=== PATIENT | female | born 1960 | race Caucasian/White ===

== ENCOUNTER 2019-03-27 09:23 | Emergency (ER) | payer BC, OTHER ==
[2019-03-27] MEDS ORDERED: Sodium Chloride 0.9% 1,000 ML IV ONE (09:30)
--- NOTE | 2019-03-27 09:35 | EDM.PDOC ---
ED HPI GENERAL MEDICAL PROBLEM - General Chief Complaint: Abdominal Pain Stated Complaint: ABDOMEN PAIN Time Seen by Provider: 03/27/19 09:27 - History of Present Illness INITIAL COMMENTS - FREE TEXT/NARRATIVE: HISTORY AND PHYSICAL: History of present illness: Patient is a 58-year-old white female who presents with concern of left-sided abdominal pain is been worse over the last 24-48 hours she is concerned because they will be taking a trip to [place] in the near future. There is no vomiting diarrhea urinary symptoms patient denies fever chills denies trauma patient denies vomiting or diarrhea Review of systems: As per history of present illness and below otherwise all systems reviewed and negative. Past medical history: As per history of present illness and as reviewed below otherwise noncontributory. Surgical history: As per history of present illness and as reviewed below otherwise noncontributory. Social history: No reported history of drug or alcohol abuse. Family history: As per history of present illness and as reviewed below otherwise noncontributory. Physical exam: HEENT: Atraumatic, normocephalic, pupils reactive, negative for conjunctival pallor or scleral icterus, mucous membranes moist, throat clear, neck supple, nontender, trachea midline. Lungs: Clear to auscultation, breath sounds equal bilaterally, chest nontender. Heart: S1S2, regular, negative for clicks, rubs, or JVD. Abdomen: Soft, nondistended, mild left lower quadrant tenderness this is not well localized no rebound no guarding. Negative for masses or hepatosplenomegaly. Negative for costovertebral tenderness. Pelvis: Stable nontender. Genitourinary: Deferred. Rectal: Deferred. Extremities: Atraumatic, negative for cords or calf pain. Neurovascular unremarkable. Neuro: Awake, alert, oriented. Cranial nerves II through XII unremarkable. Cerebellum unremarkable. Motor and sensory unremarkable throughout. Exam nonfocal. Diagnostics: CBC CMP and lipase UA CT abdomen and pelvis Therapeutics: saline 1 L bolus Impression: #1 left-sided abdominal pain Definitive disposition and diagnosis as appropriate pending reevaluation and review of above. 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 ED EXAM, GENERAL - Physical Exam Exam: See Below (Dictation) Course - Vital Signs Last Recorded V/S: Last Vital Signs Temp 35.5 C 03/27/19 09:30 Pulse 79 03/27/19 09:30 Resp 16 03/27/19 09:30 BP 137/92 H 03/27/19 09:30 Pulse Ox 97 03/27/19 09:30 - Orders/Labs/Meds Labs: Laboratory Tests 03/27/19 03/27/19 03/27/19 Range/Units 09:45 09:45 09:45 WBC 6.25 (4.0-11.0) K/uL RBC 4.55 (4.30-5.90) M/uL Hgb 13.8 (12.0-16.0) g/dL Hct 41.5 (36.0-46.0) % MCV 91.2 (80.0-98.0) fL MCH 30.3 (27.0-32.0) pg MCHC 33.3 (31.0-37.0) g/dL RDW Std Deviation 43.8 (28.0-62.0) fl RDW Coeff of Brianna 13 (11.0-15.0) % Plt Count 204 (150-400) K/uL MPV 10.10 (7.40-12.00) fL Neut % (Auto) 72.0 (48.0-80.0) % Lymph % (Auto) 20.6 (16.0-40.0) % [place] % (Auto) 5.6 (0.0-15.0) % Eos % (Auto) 1.0 (0.0-7.0) % Baso % (Auto) 0.8 (0.0-1.5) % Neut # (Auto) 4.5 (1.4-5.7) K/uL Lymph # (Auto) 1.3 (0.6-2.4) K/uL [place] # (Auto) 0.4 (0.0-0.8) K/uL Eos # (Auto) 0.1 (0.0-0.7) K/uL Baso # (Auto) 0.1 (0.0-0.1) K/uL Nucleated RBC % 0.0 /100WBC Nucleated RBCs # 0 K/uL Sodium 141 (136-145) mmol/L Potassium 4.0 (3.5-5.1) mmol/L Chloride 103 (98-107) mmol/L Carbon Dioxide 28.3 (21.0-32.0) mmol/L BUN 24 H (7.0-18.0) mg/dL Creatinine 1.2 H (0.6-1.0) mg/dL Est Cr Clr Drug Dosing 40.91 mL/min Estimated GFR (MDRD) 46.3 ml/min Glucose 99 (74-106) mg/dL Calcium 9.3 (8.5-10.1) mg/dL Total Bilirubin 0.4 (0.2-1.0) mg/dL AST 23 (15-37) IU/L ALT 19 (14-63) IU/L Alkaline Phosphatase 62 (46-116) U/L Total Protein 7.7 (6.4-8.2) g/dL Albumin 4.2 (3.4-5.0) g/dL Globulin 3.5 (2.6-4.0) g/dL Albumin/Globulin Ratio 1.2 (0.9-1.6) Lipase 135 (73-393) U/L Urine Color YELLOW Urine Appearance CLEAR Urine pH 5.5 (5.0-8.0) Ur Specific Friona <= 1.005 (1.001-1.035) Urine Protein NEGATIVE (NEGATIVE) mg/dL Urine Glucose (UA) NEGATIVE (NEGATIVE) mg/dL Urine Ketones NEGATIVE (NEGATIVE) mg/dL Urine Occult Blood NEGATIVE (NEGATIVE) Urine Nitrite NEGATIVE (NEGATIVE) Urine Bilirubin NEGATIVE (NEGATIVE) Urine Urobilinogen 0.2 (<2.0) EU/dL Ur Leukocyte Esterase NEGATIVE (NEGATIVE) Meds: Medications Discontinued Medications Generic Name Dose Route Start Last Admin Trade Name Tova PRN Reason Stop Dose Admin Sodium Chloride 1,000 mls @ 999 mls/hr 03/27/19 09:30 03/27/19 09:52 Normal Saline IV 03/27/19 10:30 999 mls/hr STAT ONE Administration Departure - Departure Time of Disposition: 11:23 Disposition: Home, Self-Care 01 Condition: Good Clinical Impression: Abdominal pain - Discharge Information Referrals: Tung Barrera MD [Primary Care Provider] - Forms: ED Department Discharge Additional Instructions: The following information is given to patients seen in the emergency department who are being discharged to home. This information is to outline your options for follow-up care. We provide all patients seen in our emergency department with a follow-up referral. The need for follow-up, as well as the timing and circumstances, are variable depending upon the specifics of your emergency department visit. If you don't have a primary care physician on staff, we will provide you with a referral. We always advise you to contact your personal physician following an emergency department visit to inform them of the circumstance of the visit and for follow-up with them and/or the need for any referrals to a consulting specialist. The emergency department will also refer you to a specialist when appropriate. This referral assures that you have the opportunity for followup care with a specialist. All of these measure are taken in an effort to provide you with optimal care, which includes your followup. Under all circumstances we always encourage you to contact your private physician who remains a resource for coordinating your care. When calling for followup care, please make the office aware that this follow-up is from your recent emergency room visit. If for any reason you are refused follow-up, please contact the [facility] emergency department at and asked to speak to the emergency department charge nurse. [facility]CKAY[facility] Specialty Care - General Surgery Professional Building [address] [place] [address], [address] [place] [address] Follow-up primary medical doctor as needed as discussed follow-up Gen. surgery is needed as discussed return as needed as discussed
[2019-03-27 10:34] LABS: CARBON DIOXIDE,CO2 28.3 mmol/L (21.0-32.0)
--- NOTE | 2019-03-27 10:44 | CT ---
INDICATION: Pt w/LLQ pain x 2 days. INDICATION: Left lower quadrant abdominal pain for 2 days. TECHNIQUE: CT abdomen and pelvis without contrast. COMPARISON: None FINDINGS: Lower chest: 5-6 millimeter pulmonary nodule in the left lung base, image 19, series 201. Liver: Unremarkable. Spleen: Unremarkable. Pancreas: Unremarkable. Gallbladder and bile ducts: Unremarkable. Kidneys: Unremarkable. No kidney or ureteral stones and no hydronephrosis. Adrenal glands: Unremarkable. GI tract: Minimal colonic diverticulosis, but no findings on CT for diverticulitis. Appendix is seen best on coronal reconstruction images, image 42, series 203. Vascular structures: Unremarkable. Lymph nodes: Unremarkable. Miscellaneous: Unremarkable. No free air or significant free fluid. Pelvic Organs: Unremarkable. Bones: Cystic lesion at the junction of the left femoral head and neck, image 125, series 201. This has a nonaggressive appearance, measuring 10 mm. IMPRESSION: 1. No findings are seen to explain left lower quadrant abdominal pain. 2. Colonic diverticulosis, but no findings on CT for diverticulitis. 3. Normal caliber appendix. 4. No obstructive urolith, hydronephrosis, or perinephric edema. Dictated by Herbert Giraldo MD @ 03/27/2019 10:43:41 AM Please note that all CT scans at this facility use dose modulation, iterative reconstruction, and/or weight-based dosing when appropriate to reduce radiation dose to as low as reasonably achievable. Dictated by: Herbert Giraldo MD @ 03/27/2019 10:43:46 (Electronically Signed)
[2019-03-27 12:05] VITALS: BP 97/62; PULSE 63
== END 2019-03-27 11:40 | disposition home or self-care (01) ==
LOC: MW.ED 09:23
DX: R10.32 Left lower quadrant pain (principal); Z88.5 Allergy status to narcotic agent
CPT/HCPCS: 36415; 74176; 80053; 81003; 83690; 85025; 96360; 99284; J7040

== ENCOUNTER 2021-05-30 07:51 | Day surgery (SDC) | payer BC, OTHER ==
[~2021-05-30 07:51] MED LIST: propofoL 50 ML ONE
[2021-05-30] MEDS ORDERED: Lactated Ringers 1,000 ML IV SCH ×2 (08:00→10:30)
--- NOTE | 2021-05-30 08:57 | PCM.PREANE ---
Preanesthetic Assessment - Anesthesia/Transfusion/Family Hx Anesthesia History: Prior Anesthesia Without Reaction Other Type of Anesthesia Reaction Comment: states gets nauseated post anesthesia Transfusion History: No Prior Transfusion(s) - Review of Systems General: No Symptoms Pulmonary: No Symptoms Cardiovascular: No Symptoms Gastrointestinal: No Symptoms Neurological: No Symptoms Other: Reports: None - Physical Assessment NPO Status Date: 05/30/21 NPO Status Time: 00:00 Vital Signs: Last Vital Signs Temp 97.3 F 05/30/21 08:04 Pulse 72 05/30/21 08:04 Resp 14 05/30/21 08:04 BP 110/61 05/30/21 08:04 Pulse Ox 98 05/30/21 08:04 Height: 5 ft 2 in Weight: 135 lb ASA Class: 2 Mental Status: Alert & Oriented x3 Airway Class: Mallampati = 2 Dentition: Reports: Normal Dentition Thyro-Mental Finger Breadths: 3 Mouth Opening Finger Breadths: 3 ROM/Head Extension: Full Lungs: Clear to Auscultation, Normal Respiratory Effort Cardiovascular: Regular Rate, Regular Rhythm - Allergies Allergies/Adverse Reactions: Allergies Allergy/AdvReac Type Severity Reaction Status Date / Time codeine Allergy Stomach Verified 05/24/21 10:11 Upset - Acknowledgements Anesthesia Type Planned: General Anesthesia Pt an Appropriate Candidate for the Planned Anesthesia: Yes Alternatives and Risks of Anesthesia Discussed w Pt/Guardian: Yes Pt/Guardian Understands and Agrees with Anesthesia Plan: Yes PreAnesthesia Questionnaire - Past Health History Medical/Surgical History: Denies Medical/Surgical History HEENT History: Reports: None Cardiovascular History: Reports: None Respiratory History: Reports: Asthma Other Respiratory History: asthma as a child Gastrointestinal History: Reports: Colon Polyp Genitourinary History: Reports: None 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: , Spontaneous Musculoskeletal History: Reports: None Neurological History: Reports: Migraines Psychiatric History: Reports: None Endocrine/Metabolic History: Reports: None Hematologic History: Reports: None Immunologic History: Reports: None Oncologic (Cancer) History: Reports: None Dermatologic History: Reports: None - Past Surgical History Head Surgeries/Procedures: Reports: None HEENT Surgical History: Reports: None Cardiovascular Surgical History: Reports: None Respiratory Surgical History: Reports: None GI Surgical History: Reports: Colonoscopy Female Surgical History: Reports: Breast Biopsy, D&C, Tubal Ligation Other Female Surgeries/Procedures: hx of ovarian cystectomy, tubal ligation, D&C x2 Endocrine Surgical History: Reports: None Neurological Surgical History: Reports: None Musculoskeletal Surgical History: Reports: None Oncologic Surgical History: Reports: Biopsy of Breast Dermatological Surgical History: Reports: None - SUBSTANCE USE Tobacco Use Status *Q: Never Tobacco User - HOME MEDS Home Medications: Home Meds Ca/D3/Mag Ox/Zinc/Service Delivery Director/Cheko/Bor [Calcium 600-D3 Plus Caplet] 1 tab PO DAILY 05/24/21 [History] Multivitamin 1 tab PO DAILY 05/24/21 [History] estradioL [Estradiol] 0.5 - 1 tab PO DAILY 05/24/21 [History] medroxyPROGESTERone Acetate [Provera] 5 mg PO DAILY 05/24/21 [History] - CURRENT (IN HOUSE) MEDS Current Meds: Current Medications Lactated Ringer's (Ringers, Lactated) 1,000 mls @ 125 mls/hr IV [facility]ED [facility] Last Admin: 05/30/21 08:07 Dose: 125 mls/hr Documented by: Discontinued Medications Propofol (Diprivan 50 Ml) Confirm Administered Dose 50 mls @ as directed .ROUTE .STK-MED ONE Stop: 05/30/21 07:17
[2021-05-30] MEDS ORDERED: ePHEDrine 50 MG/ML SDV ONE (10:03)
--- NOTE | 2021-05-30 10:20 | PCM.POSTAN ---
POST ANESTHESIA ASSESSMENT - MENTAL STATUS Mental Status: Alert, Oriented - VITAL SIGNS Vital Signs: Last Vital Signs Temp 97.3 F 05/30/21 08:04 Pulse 72 05/30/21 08:04 Resp 14 05/30/21 08:04 BP 110/61 05/30/21 08:04 Pulse Ox 98 05/30/21 08:04 - RESPIRATORY Respiratory Status: Respiratory Rate WNL, Airway Patent, O2 Saturation Stable - CARDIOVASCULAR CV Status: Pulse Rate WNL, Blood Pressure Stable - GASTROINTESTINAL GI Status: No Symptoms - POST OP HYDRATION Hydration Status: Adequate & Stable
--- NOTE | 2021-05-30 10:20 | PCM.OPNOTE ---
- General Post-Op/Procedure Note Date of Surgery/Procedure: 05/30/21 Operative Procedure(s): Colonoscopy Pre Op Diagnosis: Personal history of colon polyps Post-Op Diagnosis: Sigmoid diverticulosis Anesthesia Technique: MAC (ASA II) Primary Surgeon: Malik Alfaro Condition: Good Free Text/Narrative:: DICTATION 368472 CPT CODE 42246
--- NOTE | 2021-05-30 10:21 | PCM48HPAN ---
Post Anesthesia Note - EVALUATION WITHIN 48HRS OF ANESTHETIC Vital Signs in Normal Range: Yes Patient Participated in Evaluation: Yes Respiratory Function Stable: Yes Airway Patent: Yes Cardiovascular Function Stable: Yes Hydration Status Stable: Yes Pain Control Satisfactory: Yes Nausea and Vomiting Control Satisfactory: Yes Mental Status Recovered: Yes Vital Signs: Last Vital Signs Temp 97.3 F 05/30/21 08:04 Pulse 72 05/30/21 08:04 Resp 14 05/30/21 08:04 BP 110/61 05/30/21 08:04 Pulse Ox 98 05/30/21 08:04
[2021-05-30 10:43] VITALS: BP 108/56; PULSE 56
--- NOTE | 2021-05-30 14:05 | OR ---
SURGEON: Malik Alfaro M.D. DATE OF PROCEDURE: 05/30/2021 OPERATION PERFORMED: Colonoscopy. PRIMARY SURGEON: Malik Alfaro M.D. ANESTHESIA: MAC. ASA CLASSIFICATION: II. PREOPERATIVE DIAGNOSIS: Personal history of colon polyps. POSTOPERATIVE DIAGNOSIS: Mild sigmoid diverticulosis. DESCRIPTION OF PROCEDURE: The patient was taken to the endoscopy room and positioned on the endoscopy table in the left lateral decubitus position. Time-out was called for appropriate identification of the patient and procedure. Monitored anesthesia care was provided. The colonoscope was inserted into the rectum and advanced with minimal difficulty to the cecum. The cecum was identified by internal landmarks and external pressure. Once the colonoscope was inserted all the way to the cecum, it was retroflexed to visualize the ascending colon from below. The colonoscope was then straightened and slowly withdrawn. The cecum, ascending colon, hepatic flexure, transverse colon, splenic flexure, descending colon, and sigmoid colon were very well visualized. No tumors or polyps were seen until the colonoscope was withdrawn to the distal sigmoid, where a few scattered diverticula were noted. No stricture, spasm, or bleeding was noted. No polyps were encountered in the sigmoid colon. Once the colonoscope was withdrawn to the rectum, it was retroflexed to visualize the anal orifice from above. No tumors or polyps were seen, and there were no acute hemorrhoidal changes. The colonoscope was then straightened, the rectum aspirated, and the colonoscope removed. The patient tolerated the procedure well and was taken to recovery room in stable condition. GILMA / CALLI /[id number]
== END 2021-05-30 11:02 | disposition home or self-care (01) ==
LOC: MW.SDS 07:51
PROVIDERS: ATTEND Surgery
DX: Z12.11 Encounter for screening for malignant neoplasm of colon (principal); K57.30 Diverticulosis of large intestine without perforation or abscess without bleeding; G43.909 Migraine, unspecified, not intractable, without status migrainosus; Z88.5 Allergy status to narcotic agent; Z79.899 Other long term (current) drug therapy; Z98.890 Other specified postprocedural states; Z87.891 Personal history of nicotine dependence
CPT/HCPCS: 45378; J2704; J7120; 00812